=== PATIENT | female | born 1975 | race Caucasian/White ===

== ENCOUNTER → 2019-01-27 | Outpatient (CLI) | payer BC ==
[2019-01-27 18:43] LABS: HCG,Quantitative Serum <2.4 mIU/mL; T4, Free (Free Thyroxine) 1.01 ng/dL (0.78-2.19)
[2019-01-28 01:28] LABS: Follicle Stimulating Hormone 5.1 mIU/mL
--- NOTE | 2019-01-28 11:48 | US ---
EXAMINATION TYPE: US transvaginal DATE OF EXAM: 01/27/2019 COMPARISON: NONE CLINICAL HISTORY: Dysfunctional uterine bleeding N93.8. Abnormal periods. Patient had 2 c sections. TECHNIQUE: Transvaginal (TV EXAM MEASUREMENTS: Uterus: 7.8 x 4.8 x 6.2 cm Endometrial Stripe: 1.0 cm Right Ovary: 2.3 x 1.7 x 2.3 cm Left Ovary: 3.3 x 2.3 x 2.0 cm 1. Uterus: Anteverted Lobulated near cervical canal. 2. Endometrium: wnl 3. Right Ovary: wnl 4. Left Ovary: wnl 5. Bilateral Adnexa: wnl 6. Posterior cul-de-sac: wnl IMPRESSION: Cannot exclude underlying leiomyomatous change. Correlate clinically.
== END | disposition home or self-care (01) ==
LOC: RADUSMAIN 17:42
PROVIDERS: ATTEND Obstetrics & Gynecology
DX: N93.8 Other specified abnormal uterine and vaginal bleeding (principal); Z13.29 Encounter for screening for other suspected endocrine disorder
CPT/HCPCS: 76830; 83001; 84439; 84443; 84479; 84702

== ENCOUNTER → 2020-09-15 | Outpatient (CLI) | payer BC ==
--- NOTE | 2020-09-15 12:07 | MM ---
Reason for exam: screening (asymptomatic). Baseline mammogram. History: Patient had first child at age 33. Took hormonal contraceptives for 10 years beginning at age 19. Physical Findings: Nurse did not find any significant physical abnormalities on exam. MG Screening Mammo w CAD Bilateral CC and MLO view(s) were taken. The breast tissue is extremely dense which could obscure a lesion on mammography. Left breast density in inferior left MLO view at posterior depth, spot compression recommended. Group of calcifications upper outer 2 o'clock, 4.5cm, magnification views recommended. These results were verbally communicated with the patient and result sheet given to the patient on 09/15/20. ASSESSMENT: Incomplete: need additional imaging evaluation, BI-RAD 0 RECOMMENDATION: Special view mammogram of the left breast.
--- NOTE | 2020-09-15 12:10 | MM ---
Reason for exam: additional evaluation requested from abnormal screening. History: Patient had first child at age 33. Took hormonal contraceptives for 10 years beginning at age 19. Physical Findings: Breast exam preformed at baseline screening. MG Work Up Mamm w CAD LT CC with magnification, MLO with magnification, spot compression ML, and spot compression MLO view(s) were taken of the left breast. The breast tissue is extremely dense which could obscure a lesion on mammography. Left inferior density, probably benign asymmetry. Round punctate calcifications 2 o'clock 4.5cm, probably benign. These results were verbally communicated with the patient and result sheet given to the patient on 09/15/20. ASSESSMENT: Probably benign, BI-RAD 3 RECOMMENDATION: Follow-up diagnostic mammogram of the left breast in 6 months.
== END | disposition home or self-care (01) ==
LOC: RADMAMWWP 10:32
PROVIDERS: ATTEND Obstetrics & Gynecology
DX: Z12.31 Encounter for screening mammogram for malignant neoplasm of breast (principal); R92.2 Inconclusive mammogram; R92.1 Mammographic calcification found on diagnostic imaging of breast
CPT/HCPCS: 77065; 77067